=== PATIENT | male | born 1995 | race Asian ===

== ENCOUNTER 2020-01-25 08:49 | Emergency (ER) | payer BC ==
[~2020-01-25] VITALS: Ht 182.9 cm; Wt 83.9 kg
[2020-01-25 09:19] VITALS: Ht 182.9 cm; Wt 83.9 kg
[2020-01-25 10:17] LABS: microscopic required? NO
[2020-01-25 10:27] LABS: urine erythrocyte NEGATIVE (NEGATIVE)
[2020-01-25 10:31] LABS: BASOPHIL % 0.3 % (0-2); PLATELET COUNT 177 x10^3mcL (130-400); RED CELL DISTRIBUTION WIDTH 13.4 % (11.5-14.5)
[2020-01-25 10:40] LABS: CALCIUM 9.7 mg/dL (8.5-10.1); CARBON DIOXIDE 27.8 mmol/L (21-32); CHLORIDE SERUM 101 mmol/L (98-107); GFR1 > 60 mL/min; GLUCOSE SERUM 79 mg/dL (74-106); POTASSIUM SERUM 3.5 mmol/L (3.5-5.1); SODIUM SERUM 140 mmol/L (136-145)
[2020-01-25 10:45] LABS: ALKALINE PHOSPHATASE 65 U/L (46-116); ALT/SGPT 20 U/L (16-63); AST/SGOT 17 U/L (15-37); BILIRUBIN TOTAL 1.5 mg/dL (0.20-1.00); LIPASE 184 IU/L (73-393)
[2020-01-25 10:52] LABS: ALBUMIN 5.4 g/dL (3.4-5.0); TOTAL PROTEIN, SERUM 9.4 g/dL (6.4-8.2)
[2020-01-25 11:47] VITALS: BP 127/83
== END 2020-01-25 11:47 | disposition home or self-care (01) ==
LOC: ED 08:49
PROVIDERS: Emergency Medicine
DX: R10.13 Epigastric pain (principal)
CPT/HCPCS: Q0092